=== PATIENT | female | born 1950 | race Caucasian/White ===

== ENCOUNTER 2022-04-21 10:09 | Inpatient (IN) ==
--- NOTE | 2022-04-04 09:08 | PAT Medication Instructions ---
Medication Instructions Date of Service April 04, 2022 Home Medications atorvastatin 10 mg tablet 10 mg PO HS irbesartan 150 mg tablet 150 mg PO QAM multivitamin 1 tab PO QAM multivitamin with minerals (Hair,Skin and Nails tablet) 1 tab PO QAM paroxetine HCl 30 mg tablet 30 mg PO QAM trazodone 100 mg tablet 50 mg PO HS STOP taking 2 weeks before surgery multivitamin with minerals (Hair,Skin and Nails tablet) 1 tab PO QAM DO NOT take the morning of surgery irbesartan 150 mg tablet 150 mg PO QAM multivitamin 1 tab PO QAM Take morning of surgery With a small sip of water, OTHERWISE NOTHING TO EAT OR DRINK AFTER MIDNIGHT: paroxetine HCl 30 mg tablet 30 mg PO QAM Take evening before surgery atorvastatin 10 mg tablet 10 mg PO HS trazodone 100 mg tablet 50 mg PO HS Other Notes If you have any questions please call us at [phone] or [phone] or [phone] or [phone]
--- NOTE | 2022-04-08 09:05 | Anesthesiology Consultation ---
Date of Service April 08, 2022 Assessment & Plan (1) Encounter for pre-operative examination: - pending PCP pre-op evaluation record. PAT testing to be faxed to PCP. Chart Review Chart Review: Pending: Refer to Additional Notes / Consult section and Patient seen in Pre Admission Testing Teaching & Discussion Pre-Anesthesia Teaching/Discussion Notes: Instructed NPO after midnight before surgery, except medications with 15 cc of water. Medication instructions provided according to the PAT guidelines. History Surgery Operation Date: 04/21/22 12:00 Proposed Procedures p L3-S1 Decompression and Fusion Spinal Cord Monitoring - Osorio Herman, Height/Weight Height: 4 ft 11 in Weight: 65 kg Allergies Allergy/AdvReac Type Severity Reaction Status Date / Time No Known Allergies Allergy Verified 04/04/22 07:29 Medications Home Medications Medication Instructions Recorded Confirmed Last Taken atorvastatin 10 mg tablet 10 mg PO HS 04/04/22 04/04/22 Unknown irbesartan 150 mg tablet 150 mg PO QAM 04/04/22 04/04/22 Unknown multivitamin 1 tab PO QAM 04/04/22 04/04/22 Unknown multivitamin with minerals 1 tab PO QAM 04/04/22 04/04/22 Unknown (Hair,Skin and Nails tablet) paroxetine HCl 30 mg tablet 30 mg PO QAM 04/04/22 04/04/22 Unknown trazodone 100 mg tablet 50 mg PO HS 04/04/22 04/04/22 Unknown Past Medical History Medical History (Updated 04/08/22 @ 09:19 by Hyun Sexton PA-C) Anxiety with depression GERD (gastroesophageal reflux disease) controlled, stable per pt; triggered by certain foods History of chronic back pain Hx of sciatica Hypercholesteremia Hypertension controlled, stable per pt; occasional elevated readings recently with systolic 160s due to increased back pain per pt; states PCP is monitoring Patient denies h/o stroke, seizures, heart attack, heart failure, DM, blood clots or blood transfusions. Exercise / Class Metabolic Activity II 4-5 Yardwork/Stairs/Walk up hill (denies CP or SOB with 1 FOS) Past Surgical History Surgical History History of esophagogastroduodenoscopy (EGD) Hx laparoscopic cholecystectomy Hx of arthroscopy of left knee Hx of section x2 Hx of colonoscopy Hx of tubal ligation Past Anesthesia History No Hx of Anesthesia Complications and No Family Hx of Anesthesia Complications History of PONV No Hx of PONV and No Hx of Motion Sickness Social History Smoking Status: Former smoker Do You Dip or Chew Tobacco: No Smoking End Date: 20+ years ago Hx Alcohol Use: Yes Alcohol type: beer alcohol intake frequency: 3 or more drinks per day Hx Substance Use: No substance use type: does not use Review of Systems Patient denies chest pain, shortness of breath, dyspnea on exertion, snoring, witnessed apneas, fever, chills, cough, wheezing, or palpitations. Physical Exam Vital Signs Vitals BP 138/72 manual P 67 TEMP 98.9 SP02 94% on RA RESP 18 Physical Full cervical extension range of motion without pain TMD 3.5 finger breadths Mallampati Score 3 Dentition: intact, lower and upper front teeth bonded together; denies chipped or loose teeth, caps/crowns, implants or bridges Lungs: normal respiratory effort. Clear throughout to auscultation, no adventitious breath sounds Cardiac: regular rate and rhythm, no murmurs noted Carotid arteries: negative bruit bilat Lab Results Anesthesia Preop Results Results Anesthesia Widget: WBC 5.51 K/ul (4.8-10.8) 04/08/22 Hgb 14.5 g/dl (12.0-16.0) 04/08/22 Hct 40.6 % (34.1-44.9) 04/08/22 Plt 242 K/uL (130-400) 04/08/22 Na 137 mmol/L (136-145) 04/08/22 K 4.5 mmol/L (3.5-5.1) 04/08/22 Cl 104 mmol/L (98-107) 04/08/22 CO2 26 mmol/L (21-32) 04/08/22 BUN 19 mg/dl (6-23) 04/08/22 Creat 0.94 mg/dl (0.6-1.2) 04/08/22 Glucose Level 95 mg/dl (70-99(Fasting)) 04/08/22 PT 10.2 Seconds (9.0-12.0) 04/08/22 PTT 29.6 Seconds (21.0-31.0) 04/08/22 INR 1.0 (0.9-1.1) 04/08/22 Urine Color Dark Yellow 04/08/22 Urine Appearance Clear (Clear) 04/08/22 Urine pH 5.5 (4.5-7.5) 04/08/22 Urine Specific [place] 1.022 (1.000-1.030) 04/08/22 Urine Protein Negative (Negative) 04/08/22 Urine Glucose (UA) Negative (Negative) 04/08/22 Urine Ketones Trace (Negative) H 04/08/22 Urine Blood Negative (Negative) 04/08/22 Urine Nitrite Negative (Negative) 04/08/22 Urine Bilirubin Negative (Negative) 04/08/22 Urine Urobilinogen Negative (Negative) 04/08/22 Urine Leukocyte Esterase Trace (Negative) H 04/08/22 Urine WBC (Auto) 1-5 /hpf (0-5) 04/08/22 Urine RBC (Auto) 0-4 /hpf (0-4) 04/08/22 Urine Hyaline Casts (Auto) 0 /lpf (0-5) 04/08/22 Urine Epithelial Cells (Auto) 20-30 /lpf (0-5) H 04/08/22 Urine Bacteria (Auto) Negative (Negative) 04/08/22 Blood Type O Negative 04/08/22 Antibody Screen NEGATIVE 04/08/22 Testing Electrocardiogram Date: 04/08/22 NSR, rate 66 bpm Left axis deviation Poor R wave progression, consider anterior ND vs lead placement vs LVH Chest X-Ray Date: 04/08/22 The heart is normal in size. No pneumothorax. No pleural effusions. The right lung is clear. A few linear density at the left lung base favor scarring or subsegmental atelectasis. No evidence for pulmonary edema. Prior cholecystectomy. IMPRESSION: No acute process. COVID-19 Risk Screen Screening Information COVID-19 Screen Date: 04/08/22 Exposure 21 Days Family/Household +COVID Last 21 Days: No Exposure 10 Days Any COVID Exposure Last 10 Days: No Symptoms Last 10 Days Experienced COVID Sx Last 10 Days: No + COVID 0-90 Days COVID + in Last 0-90 Days: No
[~2022-04-21 10:09] MED LIST: ACETAMINOPHEN 500 MG TAB PO SCH; CeleBREX 200 MG CAP PO SCH; GABAPENTIN 300 MG CAP PO SCH; LR 15ML/HR IV SCH; ceFAZolin 2000MG 2,000 MG/15 ML SYR IV SCH
[2022-04-21] MEDS ORDERED: MIDAZOLAM HCL 1 MG/ML 2ML VIAL ONE (10:39)
[2022-04-21] MEDS ORDERED: fentaNYL citrate 100 MCG/2 ML VIAL ONE (10:39)
--- NOTE | 2022-04-21 11:46 | History & Physical Bridge Note ---
Date of Service April 21, 2022 History & Physical Bridge Note I have examined the patient, reviewed the History & Physical and in the interval since the performance of the History & Physical I have noted the following changes of clinical significance: no changes noted
--- NOTE | 2022-04-21 11:47 | History & Physical Report ---
Date of Service April 21, 2022 Assessment & Plan (1) Neurogenic claudication due to lumbar spinal stenosis: Plan: L3-S1 decompression and fusion History of Present Illness Chief Complaint: Back and leg pain Primary Care Provider: Jony Weston This is a 9-year-old female presents chronic persistent back and bilateral leg pain. After failing course of nonoperative care is here for surgical invention. Allergies Allergy/AdvReac Type Severity Reaction Status Date / Time No Known Allergies Allergy Verified 04/04/22 07:29 Home Medications Medication Instructions Recorded Confirmed Type atorvastatin 10 mg tablet 10 mg PO HS 04/04/22 04/21/22 History irbesartan 150 mg tablet 150 mg PO QAM 04/04/22 04/21/22 History multivitamin 1 tab PO QAM 04/04/22 04/21/22 History multivitamin with minerals 1 tab PO QAM 04/04/22 04/21/22 History (Hair,Skin and Nails tablet) paroxetine HCl 30 mg tablet 30 mg PO QAM 04/04/22 04/21/22 History trazodone 100 mg tablet 50 mg PO HS 04/04/22 04/21/22 History Past Med/Surg History Medical History (Updated 04/21/22 @ 11:47 by Osorio Herman DO) Anxiety with depression GERD (gastroesophageal reflux disease) controlled, stable per pt; triggered by certain foods History of chronic back pain Hx of sciatica Hypercholesteremia Hypertension controlled, stable per pt; occasional elevated readings recently with systolic 160s due to increased back pain per pt; states PCP is monitoring Surgical History History of esophagogastroduodenoscopy (EGD) Hx laparoscopic cholecystectomy Hx of arthroscopy of left knee Hx of section x2 Hx of colonoscopy Hx of tubal ligation Social History Smoking Status: Former smoker Smoking End Date: 20+ years ago; Second Hand Exposure: No; Do You Dip or Chew Tobacco: No; Tobacco Cessation Education Requested by Patient: No Hx Alcohol Use: Yes Alcohol type: beer Hx Substance Use: No Preferred Language: Occitan Communication Ability: Effective Minister Helper Required: No Beliefs That Will Affect Care: None Other Information That Helps Us Care for You: No Feels Safe at Home: Yes Safety Concerns: Feels Safe At This Time Assistive Devices: Glasses Physical Exam Physical Exam: Patient is alert and oriented Heart regular and rhythm lungs clear Results & Data Results & Data ([facility]) Vital Signs (Past 12 Hours) Vital Signs Temp Pulse Resp BP Pulse Ox O2 Del Method 04/21/22 10:50 36.5 C 79 20 169/97 H 93 Room Air
[2022-04-21] MEDS ORDERED: BUPIVACAINE/EPINEPHRINE 0.5% MPF 1:200,000 30 ML VIAL ONE ×2 (11:48→12:20)
[2022-04-21] MEDS ORDERED: ceFAZolin 330 MG/ML 1 GM VIAL ONE (11:48)
[2022-04-21] MEDS ORDERED: MoRPHine SULFATE 10 MG/ML CARP/VIAL IV PRN ×2 (11:53→11:55)
[2022-04-21] MEDS ORDERED: ePHEDrine sulfate 50 MG/ML AMP IV PRN ×2 (11:53→11:55)
[2022-04-21] MEDS ORDERED: ATROPINE SULFATE 0.1 MG/ML 10ML SYR IV PRN ×2 (11:53→11:55)
[2022-04-21] MEDS ORDERED: MEPERIDINE HCL 25 MG/ML CARP/VIAL IV PRN ×2 (11:53→11:55)
[2022-04-21] MEDS ORDERED: fentaNYL citrate 100 MCG/2 ML VIAL IV PRN (11:55)
[2022-04-21] MEDS ORDERED: HYDROmorphone INJ 2 MG/ML SYR/VIAL ONE (12:47)
[2022-04-21] MEDS ORDERED: LARYING-O-JET KIT (LTA) ONE (12:51)
[2022-04-21] MEDS ORDERED: NEOSTIGMINE METHYLSULFATE 1 MG/ML 10ML VIAL ONE (12:51)
[2022-04-21] MEDS ORDERED: ONDANSETRON INJ 2 MG/ML 2 ML VIAL ONE (12:51)
[2022-04-21] MEDS ORDERED: LIDOCAINE 2% MPF LOCAL 5 ML VIAL INFIL ONE (12:51)
[2022-04-21] MEDS ORDERED: ePHEDrine sulfate 50 MG/ML AMP ONE (12:51)
[2022-04-21] MEDS ORDERED: DEXAMETHASONE SOD INJ 4 MG/ML VIAL ONE (12:51)
[2022-04-21] MEDS ORDERED: GLYCOPYRROLATE 0.2 MG/ML VIAL ONE (12:51)
[2022-04-21] MEDS ORDERED: PROPOFOL IV EMULSION 10 MG/ML 20 ML VIAL IV ONE (12:51)
[2022-04-21] MEDS ORDERED: ROCURONIUM BROMIDE 10 MG/ML 5 ML VIAL IV ONE (12:51)
[2022-04-21] MEDS ORDERED: PHENYLEPHRINE HCL 10 MG/ML VIAL ONE (12:51)
[2022-04-21] MEDS ORDERED: FLOSEAL HEMOSTATIC MATRIX 10ML TOP ONE (12:54)
--- NOTE | 2022-04-21 14:41 | Operative Report ---
Post Operative Report Pre & Post Diagnosis Operation Date: 04/21/22 11:55 Pre-Op Diagnosis: Spinal Stenosis Lumbar Region with Neurogenic Post-Op Diagnosis: Spinal Stenosis Lumbar Region with Neurogenic I identified the patient and participated in the time-out.: Yes Procedure Operation Date: 04/21/22 11:55 Actual Procedures #1 lumbar decompression with bilateral medial facetectomies and foraminotomies L2-L3, L3-L4, L4-5 and L5-S1. #2 posterior spinal fusion L3-S1. #3 placement posterior segmental instrumentation L3-S1. #4 interbody fusion L4-L5 L5-S1. #5 placement of Spira 11 x 22 mm at L4-5 and 13 x 22 mm at L5-S1. #6 placement locally harvested morselized autograft in the posterior gutters. #7 placement of I factor model V toss interbody space and posterior gutters. Surgeon Osorio Herman, Gis Scientist Alva Ceballos Estimated Blood Loss 200 Findings Consistent with Post-Op Diagnosis Specimens none Indications This is a 72-year-old female who presents above-mentioned diagnosis after failed course of nonoperative care is here for the above-mentioned procedure. Description of Procedure Patient was met with identified informed consent obtained. Patient was then taken to the operative suite underwent patient placed in a prone position the Jerrod table atop the Braden frame. All bony prominences well-padded eyes inspected to ensure no external pressure placed upon them. This point the lumbar spine was prepped and draped in normal sterile fashion. Sharp dissection with the assistance of Bovie cautery was performed down to and exposing the lamina and transverse processes of L3-L4-L5 and sacral ala bilaterally. From a caudal cephalad fashion complete laminectomy of L5 L4 L3 and partial laminectomy of L2 was performed including bilateral medial facetectomies and foraminotomies addressing severe spinal stenosis. Pedicle screws then placed in L3-L4-L5 and S1 levels and the properly sized jovany contoured and placed. By way of transforaminal approach and ready to be discectomy of L5-S1 was performed endplates curetted to subcortical bleeding bone and a 13 x 22 mm spiral cage with I factor tapped in position. Then proceeded to L4-L5 and again by way the transforaminal approach on the right complete discectomy performed endplates curetted to subcortically bone and a 11 x 22 mm spiral cage with I factor tapped in position. The rods then locked into position bilaterally. Transverse processes of L3 L4-5 and the sacral ala burred to subcortical bleeding bone. I factor combined with V toss and locally harvested morselized autograft was placed in the posterior gutters. 15 round ALAINA drain inserted. The incision was then closed with 1 Vicryl in the fascia 2-0 Vicryl subcutaneously and 4 Monocryl for final skin closure. Steri-Strip sterile dressing placed. Patient waken taken to PACU in stable condition. Please note spinal cord monitoring was last at the procedure no changes noted. Lastly Alva Ceballos was present at the entire surgery involved the patient positioning complex portions of the surgery and final skin closure. I attest to the content of the Intraoperative Record and any orders documented therein. Any exceptions are noted below.
--- NOTE | 2022-04-21 14:44 | Fluoroscopy Report ---
FL lumbar spine 2-3V CLINICAL HISTORY: L3-S1 DECOMP/FUSION COMPARISON STUDY: None. FLUOROSCOPY TIME: 33 seconds. FINDINGS: 2 fluoroscopic spot images of the lumbar spine demonstrate posterior decompression and fusi on from L3 through S1 with pedicle screws and rods. The hardware appears intact. Slight anterior disp lacement of the L4-5 disc spacer which slightly overhangs the endplates. The L5-S1 disc spacers in pl ray. IMPRESSION: Fluoroscopic assistance provided for L3-S1 posterior decompression and fusion as above. ACT 112: Negative or not required by law. Electronically signed by: Nitin Cox M.D. 04/21/2022 2:43 PM
[2022-04-21] MEDS: fentaNYL citrate 100 MCG/2 ML VIAL IV PRN ×4 (15:21→15:36)
--- NOTE | 2022-04-21 15:26 | Anesthesiology Progress Note ---
Date of Service April 21, 2022 Anesthesia Post Procedure Vital Signs Vital Signs: Temp Pulse Resp BP Pulse Ox O2 Del Method O2 Flow Rate 04/21/22 15:10 70 12 122/66 98 Oxymask 6 04/21/22 15:00 72 13 114/64 98 Oxymask 8 04/21/22 14:51 36.1 C L 77 21 117/79 97 Oxymask 8 04/21/22 10:50 36.5 C 79 20 169/97 H 93 Room Air Pain Intensity Lower Back: Pain Intensity: 4 Transfer of Care Handoff Completed per policy Notes Mental Status: alert / awake / arousable Patient Amnestic to Procedure: Yes Nausea / Vomiting: adequately controlled Pain: adequately controlled Airway Patency, RR, SpO2: stable & adequate BP & HR: stable & adequate Hydration State: stable & adequate Anesthetic Complications: no major complications apparent and Pt Satisfied with anesthetic care
[2022-04-21] MEDS ORDERED: ONDANSETRON 4 MG OD TAB PO PRN (17:12)
[2022-04-21] MEDS ORDERED: hydrOXYzine HCl 25 MG TAB PO PRN (17:12)
[2022-04-21] MEDS ORDERED: SOD PHOSPHATE/SOD BIPHOSPHATE ENEMA 132 ML BTL PR PRN (17:12)
[2022-04-21] MEDS ORDERED: ACETAMINOPHEN 1,000 MG/100 ML VIAL IV PRN (17:12)
[2022-04-21] MEDS ORDERED: LACTATED RINGER'S 1,000 ML IV SCH (17:12)
[2022-04-21] MEDS ORDERED: bisacodyL 10 MG SUPP PR PRN (17:12)
[2022-04-21] MEDS ORDERED: PROMETHAZINE HCL 12.5 MG in SODIUM CHLORIDE 0.9% 50 ML IV PRN (17:12)
[2022-04-21] MEDS ORDERED: LORazepam 0.5 MG in SYRINGE 0 ML IV PRN (17:12)
[2022-04-21] MEDS ORDERED: MAGNESIUM HYDROXIDE SUSP 30 ML UDC PO PRN (17:12)
[2022-04-21] MEDS ORDERED: HYDROmorphone INJ 1 MG/ML SYRINGE IV PRN (17:12)
[2022-04-21] MEDS ORDERED: LORazepam 0.5 MG TAB PO PRN (17:12)
[2022-04-21] MEDS ORDERED: HYDROmorphone INJ 0.5 MG/0.5 ML SYR IV PRN (17:12)
[2022-04-21] MEDS ORDERED: traMADol HCL 50 MG TABLET PO PRN (17:12)
[2022-04-21] MEDS ORDERED: ALUMINUM/MAGNESIUM SUSP 30 ML UDC PO PRN (17:12)
[2022-04-21] MEDS ORDERED: NALOXONE HCL 0.4 MG/1 ML VIAL/CARP IV PRN (17:12)
[2022-04-21] MEDS ORDERED: ONDANSETRON INJ 2 MG/ML 2 ML VIAL IV PRN (17:12)
[2022-04-21] MEDS ORDERED: FAMOTIDINE 20 MG TAB PO PRN (17:12)
[2022-04-21] MEDS ORDERED: METOCLOPRAMIDE HCL INJ 5 MG/ML 2 ML VIAL IV PRN (17:12)
[2022-04-21] MEDS ORDERED: diphenhydrAMINE Capsule 25 MG CAP PO PRN (17:12)
[2022-04-21] MEDS ORDERED: LORazepam 1 MG TAB PO PRN ×3 (17:48)
[2022-04-21] MEDS ORDERED: Ativan PO Alcohol Withdrawal--Active Protocol PO PRN (17:48)
--- NOTE | 2022-04-21 17:54 | Hospitalist Consultation ---
Date of Consultation April 21, 2022 Assessment & Plan (1) Neurogenic claudication due to lumbar spinal stenosis: POD#0 L3-S1 decompression and fusion by Dr. Herman Activity and wound care orders as per ortho Pain control with bowel regimen PT/OT Monitor H/H for acute blood loss anemia and transfuse blood products PRN EBL 200 cc (2) Alcohol abuse: Patient reports drinking up to 6 beers/night Alcohol withdrawal protocol with as needed Ativan Start thiamine and folic acid (3) Hypertension: BP controlled, continue irbesartan (4) Anxiety with depression: Continue paroxetine and trazodone (5) DVT prophylaxis: TEDs/SCDs as per spine Ortho Thank you for this consultation. We will follow the patient with you during their hospital stay. You can reach a member of the [facility] Hospitalist Team 22/12 via the [employer] Hospitalist role in [place] Text. Supervising Physician Co-Signing Physician Notes Care coordinated with GORDON Barlow. Agree with above note. Patient seen and examined. Please refer to her notes for full details. Vital signs reviewed. Physical exam: General exam: Alert and oriented. Not in acute distress. CVS: S1 and S2 heard, regular rate and rhythm, no murmurs. RS: Clear to auscultation, no wheezing or crackles. ABD: Soft, bowel sounds present, nontender, no distention. AGRICULTURAL SCIENCE PROFESSOR: Nonfocal. Musculoskeletal s/p back surgery dressing and drain intact EXT: No edema, no erythema. Labs: Reviewed. Assessment and plan: 72F with hx of HTN ongoing alcoholism is s/p back surgery. olerated procedure ok . resting comfortably. denies any pain. No chest pain or sob or blurry vision or nausea. BAck surgery as per ortho Alcoholism 6 beers/day denies any withdrawals started on gabapentin and ativan prn protocol thiamine and folic acid will monitor Other diagnosis and plan of care as per GORDON Barlow. . Mitch salinas MD. History of Present Illness Reason for Consultation: Postop medical management Requesting Physician: Dr. Herman Attending Physician: Osorio Herman DO History of Present Illness 72-year-old female with PMH HTN, HLD, anxiety, alcohol abuse, and other problems listed below who is s/p L3-S1 decompression and fusion today by Dr. Herman. Postoperatively, the patient is doing well. She is reporting incisional back pain and is requesting pain medication. Patient appears to be resting comfortably in bed. Denies radiation of the pain into either leg and also denies numbness, tingling, weakness to lower extremities. No chest pain or shortness of breath. Denies lightheadedness and dizziness. No abdominal pain or nausea. Allergies Allergy/AdvReac Type Severity Reaction Status Date / Time No Known Allergies Allergy Verified 04/04/22 07:29 Home Medications Medication Instructions Recorded Confirmed Type atorvastatin 10 mg tablet 10 mg PO HS 04/04/22 04/21/22 History irbesartan 150 mg tablet 150 mg PO QAM 04/04/22 04/21/22 History multivitamin 1 tab PO QAM 04/04/22 04/21/22 History multivitamin with minerals 1 tab PO QAM 04/04/22 04/21/22 History (Hair,Skin and Nails tablet) paroxetine HCl 30 mg tablet 30 mg PO QAM 04/04/22 04/21/22 History trazodone 100 mg tablet 50 mg PO HS 04/04/22 04/21/22 History Patient History Medical History Alcohol abuse Anxiety with depression GERD (gastroesophageal reflux disease) controlled, stable per pt; triggered by certain foods History of chronic back pain Hx of sciatica Hypercholesteremia Hypertension controlled, stable per pt; occasional elevated readings recently with systolic 160s due to increased back pain per pt; states PCP is monitoring Surgical History History of esophagogastroduodenoscopy (EGD) Hx laparoscopic cholecystectomy Hx of arthroscopy of left knee Hx of section x2 Hx of colonoscopy Hx of tubal ligation Family History Father COPD (chronic obstructive pulmonary disease) Mother COPD (chronic obstructive pulmonary disease) Social History Smoking Status: Former smoker Smoking End Date: 20+ years ago; Second Hand Exposure: No; Do You Dip or Chew Tobacco: No; Tobacco Cessation Education Requested by Patient: No Hx Alcohol Use: Yes Alcohol type: beer Hx Substance Use: No Preferred Language: Guatemalan Communication Ability: Effective Plan Nurse Required: No Beliefs That Will Affect Care: None Other Information That Helps Us Care for You: No Feels Safe at Home: Yes Safety Concerns: Feels Safe At This Time Assistive Devices: Glasses Review of Systems Review of Systems: ROS per HPI, all other systems reviewed and negative Physical Exam Constitutional: WD/WN, vitals as above Eyes: PERRL, conjunctivae normal, anicteric sclerae ENMT: external ear and nose normal, oropharynx normal Respiratory: normal respiratory effort, lungs clear to auscultation Cardiovascular: Rate/Rhythm: regular rate and regular rhythm Vessels: normal peripheral pulses Extremities: no edema Gastrointestinal (Abdomen): normal bowel sounds, soft, nontender, no hepatosplenomegaly Musculoskeletal: S/p back surgery, pedal pushes and pulls strong bilaterally, drain in place draining bloody drainage Skin: no rashes, warm and dry Neurologic: PERRL, EOMI, accommodation nl, no face palsy, no dysarthria Psychiatric: A+Ox3, euthymic affect Results & Data Results & Data ([facility]) Vital Signs (Past 12 Hours) Vital Signs Temp Pulse Resp BP Pulse Ox O2 Del Method O2 Flow Rate 04/21/22 17:10 36.6 C 74 16 123/76 95 Nasal Cannula 3 04/21/22 16:55 77 13 123/62 98 Nasal Cannula 3 04/21/22 16:25 74 21 122/63 95 Nasal Cannula 3 04/21/22 16:10 78 20 108/62 98 Nasal Cannula 3 04/21/22 16:00 63 16 105/59 L 90 Nasal Cannula 3 04/21/22 15:50 63 17 120/56 L 94 Nasal Cannula 2 04/21/22 15:40 36.4 C L 74 18 103/57 L 96 Nasal Cannula 2 04/21/22 15:30 74 18 130/65 95 Nasal Cannula 2 04/21/22 15:20 79 17 121/64 94 Oxymask 4 04/21/22 15:10 70 12 122/66 98 Oxymask 6 04/21/22 15:00 72 13 114/64 98 Oxymask 8 04/21/22 14:51 36.1 C L 77 21 117/79 97 Oxymask 8 04/21/22 10:50 36.5 C 79 20 169/97 H 93 Room Air
[2022-04-21] MEDS: ACETAMINOPHEN 500 MG TAB PO PRN (18:12)
[2022-04-21] MEDS ORDERED: GABAPENTIN 1200MG ALCOHOL WITHDRAWAL LOAD PO STA (19:08)
[2022-04-21] MEDS ORDERED: GABAPENTIN 600 MG TAB PO ONE (19:30)
[2022-04-21] MEDS: FOLIC ACID 1 MG TAB PO SCH (20:21)
[2022-04-21] MEDS: ceFAZolin 1000MG 1,000 MG/7.5 ML SYR IV SCH (20:21)
[2022-04-21] MEDS: THIAMINE HCL 100 MG TAB PO SCH (20:22)
[2022-04-21] MEDS: ATORVASTATIN 10 MG TAB PO SCH (20:23)
[2022-04-21] MEDS: DOCUSATE SODIUM/SENNA 50/8.6MG TAB PO SCH (20:23)
[2022-04-21] MEDS: traZODone HCL 50 MG TAB PO SCH (20:24)
[2022-04-21] MEDS: oxyCODONE HCL IR 5 MG TAB (IMMEDIATE RELEASE) PO PRN (20:27)
[2022-04-21] MEDS ORDERED: PNEUMOCOCCAL Polysaccharide Vaccine 25mcg/0.5mL vial/Syr IM ONE (21:00)
[2022-04-21] MEDS ORDERED: NURSING DECISION MEDICATION ONE (23:05)
[2022-04-21] MEDS ORDERED: COUGH DROP (SUGAR FREE) LOZ 24 LOZ/1 BOX BUCCAL PRN (23:06)
[2022-04-22] MEDS: ceFAZolin 1000MG 1,000 MG/7.5 ML SYR IV SCH (04:21)
[2022-04-22] MEDS: POLYETHYLENE (MIRALAX) 17 GM PACK PO SCH ×4 (05:34→23:39)
[2022-04-22] MEDS: GABAPENTIN 600 MG TAB PO SCH ×3 (05:35→20:33)
[2022-04-22 06:36] LABS: Hematocrit (blood only) 31.8 % (34.1-44.9); Hemoglobin 11.3 g/dl (12.0-16.0); Mean Corpuscular Hemoglobin 34.5 pg (25.0-34.0); Mean Corpuscular Hgb Conc 35.5 g/dL (32.0-36.0); Mean Platelet Volume 10.1 fL (9.4-12.3); Platelet Count 228 K/uL (130-400); RDW Coefficient of Variation 12.5 % (11.5-14.5); RDW Standard Deviation 44.2 fL (36.4-46.3); Red Blood Count 3.28 M/uL (3.93-5.22); White Blood Count 13.35 K/ul (4.8-10.8)
[2022-04-22 07:00] LABS: Calcium 8.8 mg/dl (8.5-10.1); Creatinine Clr Calc Pharmacy 42.4 ml/min; Est GFR (African American) 66.1 ml/min; Potassium 4.4 mmol/L (3.5-5.1)
[2022-04-22 07:18] LABS: Basophils # (auto) 0.01 K/uL (0-0.2); Basophils % (auto) 0.1 %; Immature Granulocytes # (auto) 0.09 K/uL (0.00-0.02); Immature Granulocytes % (auto) 0.7 %; Lymphocytes # (auto) 0.66 K/uL (1.2-3.4); Lymphocytes % (auto) 4.9 %; Monocytes # (auto) 0.31 K/uL (0.24-0.82); Monocytes % (auto) 2.3 %; Neutrophils # (auto) 12.28 K/uL (1.4-6.5); Polychromasia 1+
[2022-04-22] MEDS: ACETAMINOPHEN 500 MG TAB PO PRN (08:05)
[2022-04-22] MEDS: IRBESARTAN 150 MG TAB PO SCH (08:06)
[2022-04-22] MEDS: THIAMINE HCL 100 MG TAB PO SCH (08:06)
[2022-04-22] MEDS: MULTIVITAMIN TAB PO SCH (08:06)
[2022-04-22] MEDS: dexAMETHasone 6 MG in SYRINGE 0 ML IV SCH (08:07)
[2022-04-22] MEDS: FOLIC ACID 1 MG TAB PO SCH (08:07)
[2022-04-22] MEDS: PARoxetine HCL 10 MG TAB PO SCH (08:07)
--- NOTE | 2022-04-22 09:26 | Orthopedic Progress Note ---
Date of Service April 22, 2022 Assessment & Plan (1) Neurogenic claudication due to lumbar spinal stenosis: Plan: Patient is postop day 1 status post L3-S1 decompression instrumented fusion. Will continue with pain control. Start physical therapy today. Maintain ALAINA drain. DVT prophylaxis is in the form teds and SCDs. Continue with aggressive bowel regimen. Anticipate discharge home in roughly 48 hours. Admission and Anticipated Discharge Date Admission Date: April 21, 2022 Subjective Clara is postop day 1 status post L3-S1 decompression and instrumented fusion. She has complaints of some right lower extremity numbness and paresthesias. This was her affected leg preoperatively. Preoperative pain is improved. ALAINA drain output last shift was 90 cc. H&H is morning are 11.3 and 31.8 respectively Review of Systems Review of Systems: All systems reviewed & are unremarkable except as noted in HPI & below Physical Exam Physical Exam: She sitting up in a chair no acute distress Alert and oriented x3 Lumbar dressing is clean dry intact with functioning ALAINA drain Calf soft nontender bilaterally Strength intact bilateral lower extremities Results & Data ([facility]) Vital Signs (Past 12 Hours) Vital Signs Temp Pulse Resp BP Pulse Ox O2 Del Method O2 Flow Rate 04/22/22 06:30 36.4 C L 82 18 128/85 99 Room Air 04/22/22 02:34 36.5 C 81 16 112/69 93 Room Air 04/21/22 22:57 36.4 C L 87 16 126/79 95 Nasal Cannula 2
--- NOTE | 2022-04-22 14:59 | Student Report ---
[facility] Med Student Progress Note Date of Service Date of service: April 22, 2022 Subjective Subjective: 72 yo female with PMHx of HTN, HLD, anxiety, ETOH abuse, and neurogenic claudication of the lumbar spine who is POD 1 from L3-S1 decompression and fusion. Pt states that she feels "pretty good" and besides some incisional pain, isn't having any discomfort. She noted some previous numbness to her right foot, but says that it's improving. Pt denies any fever, chills, night sweats, CP, SOB, N/V/D, or issues with jarvis catheter. Pt said she worked with OT today to learn how to get in and out of bed and ambulate. Pt expressed some concern that she might be too much for her , who suffers from COPD, to provide care for her. She wants to go home, but wants to be sure that she is well enough to care for her own basic needs. ROS ROS: See above for pertinent positives & negatives. A total of 10 systems reviewed and were otherwise negative. Physical Exam Physical Exam: Vital Signs Temp 36.7 C 04/22/22 11:44 Pulse 74 04/22/22 11:44 Resp 16 04/22/22 11:44 BP 115/72 04/22/22 11:44 Pulse Ox 94 04/22/22 11:44 O2 Del Method 04/22/22 11:44 O2 Flow Rate 2 04/21/22 22:57 General: Well-appearing, in no significant distress. Converses appropriately, cooperative. HEENT: No scleral icterus, PERRLA, neck supple. Atraumatic. Normocephalic. Cardiovascular: S1, S2 regular rate. No murmurs, gallops, S3, S4. Radial and pedal pulses +2 palp bilaterally. Pulmonary: Clear to auscultation bilaterally, normal work of breathing. Abdomen: Soft, nontender, nondistended, positive bowel sounds. Musculoskeletal: Atraumatic, no peripheral edema. Neurologic: Patient awake alert and oriented x 3, +4 strength in all 4 extremities. PERRLA, wears glasses. Skin: Warm, dry, no rash. Back incision covered with dry/intact dressing. Sanguinous drainage noted in ALAINA bulb. Results Results: Short CBC 04/22/22 06:14 WBC 13.35 H Hgb 11.3 L Hct 31.8 L Plt Count 228 BMP 04/22/22 06:14 Sodium 133 L Potassium 4.4 Chloride 99 Carbon Dioxide 26 BUN 13 Creatinine 1.00 Glucose 197 H Calcium 8.8 A&P A&P: 1. Neurogenic claudication of lumbar spine: POD 1 L3-S1 decompression and fusion. H&H preop: 14.5/40.6 and post-op: 11.3/31.8. Pt asymptomatic at this time. Activity as pt tolerates, per ortho-spine. Order to remove jarvis in place, not d/c'd at time of patient visit. Worked with PT/OT this morning. 2. ETOH abuse: Spoke with patient regarding withdraw risk. Pt verbalized understanding of medications available for symptoms if needed. In addition to multivitamin, pt ordered folic acid and thiamin. 3. HTN/HLD: Pt appears to be well controlled on current med regimen. Continue irbesartan and atorvastatin inpatient. 4. Anxiety/Depression: Continue paroxetine and trazadone. 5. DVT prophylaxis: SCOTT stockings and SCDs to BLE. Updated Medication List Medication Instructions Recorded Confirmed Type atorvastatin 10 mg tablet 10 mg PO HS 04/04/22 04/21/22 History irbesartan 150 mg tablet 150 mg PO QAM 04/04/22 04/21/22 History multivitamin 1 tab PO QAM 04/04/22 04/21/22 History multivitamin with minerals 1 tab PO QAM 04/04/22 04/21/22 History (Hair,Skin and Nails tablet) paroxetine HCl 30 mg tablet 30 mg PO QAM 04/04/22 04/21/22 History trazodone 100 mg tablet 50 mg PO HS 04/04/22 04/21/22 History oxycodone 5 mg tablet 5 mg PO Q6H PRN pain, severe #30 04/22/22 Rx tabs tramadol 50 mg tablet 50 mg PO Q6H PRN pain, moderate 04/22/22 Rx #30 tabs
--- NOTE | 2022-04-22 15:27 | Hospitalist Progress Note ---
Date of Service April 22, 2022 Assessment & Plan (1) Neurogenic claudication due to lumbar spinal stenosis: Plan: POD#1 L3-S1 decompression and fusion by Dr. Herman Activity and wound care orders as per ortho Pain control with bowel regimen PT/OT Monitor H/H for acute blood loss anemia and transfuse blood products PRN EBL 200 cc, ALAINA output 380 cc Preop Hgb 14.5 --> 11.3 (2) Alcohol abuse: Plan: Patient reports drinking up to 6 beers/night Alcohol withdrawal protocol with gabapentin protocol and as needed Ativan. Patient has not required any doses of Ativan. Start thiamine and folic acid (3) Hypertension: Plan: BP controlled, continue irbesartan (4) Anxiety with depression: Plan: Continue paroxetine and trazodone (5) DVT prophylaxis: Plan: TEDs/SCDs as per spine Ortho Admission and Anticipated Discharge Date Admission Date: April 21, 2022 Supervising Physician Co-Signing Physician Notes Patient seen and examined at bedside as a follow-up of medical consult for lumbar surgery. Patient was sitting up in bed, on room air, NAD, reports RLE radicular symptoms improvement, reports minimal pain at operative site. Patient reports feeling better. Patient tolerating diet well. Has not moved bowels yet but is moving gas. On examination patient on room air, NAD, heart/lung/abdomen examination WNL, low back with clean dressing with a sulcus, ALAINA drain noted with moderate serosanguineous collection noted. Rest of the examination as above. I have seen and examined the patient and have discussed the case with the provider above. I agree with the assessment and plan as stated. Seen By dr. Delarosa and Niesha Subjective Follow-up for medical management, s/p L3-S1 decompression and fusion by Dr. Herman. Patient seen and examined. Offers no complaints, reports pain is well controlled. Reports brief episode of right foot to mid calf numbness that has since resolved. No chest pain or shortness of breath. Denies lightheadedness and dizziness while out of bed. Balderas remains in place. No abdominal pain or nausea, +flatus, no BM. Review of Systems Review of Systems: ROS per HPI, all other systems reviewed and negative Physical Exam Constitutional: WD/WN, vitals as above no acute distress Resting in bed Respiratory: normal respiratory effort, lungs clear to auscultation Cardiovascular: Rate/Rhythm: regular rate and regular rhythm Vessels: normal peripheral pulses Extremities: no edema Gastrointestinal (Abdomen): Percussion/Palpation: abdomen soft; abdomen nontender Musculoskeletal: S/p back surgery, pedal pushes and pulls strong bilaterally, drain in place draining serosanguineous drainage Skin: no rashes, warm and dry Neurologic: no focal motor deficits Psychiatric: A+Ox3, euthymic affect Results & Data Results & Data ([facility]) Vital Signs (Past 12 Hours) Vital Signs Temp Pulse Resp BP Pulse Ox O2 Del Method 04/22/22 11:44 36.7 C 74 16 115/72 94 Room Air 04/22/22 06:30 36.4 C L 82 18 128/85 99 Room Air Laboratory Results Short CBC 04/22/22 Range/Units 06:14 WBC 13.35 H (4.8-10.8) K/ul Hgb 11.3 L (12.0-16.0) g/dl Hct 31.8 L (34.1-44.9) % Plt Count 228 (130-400) K/uL BMP 04/22/22 06:14 Sodium 133 L Potassium 4.4 Chloride 99 Carbon Dioxide 26 BUN 13 Creatinine 1.00 Glucose 197 H Calcium 8.8
[2022-04-22] MEDS: DOCUSATE SODIUM/SENNA 50/8.6MG TAB PO SCH (20:33)
[2022-04-22] MEDS: ATORVASTATIN 10 MG TAB PO SCH (20:34)
[2022-04-22] MEDS: traZODone HCL 50 MG TAB PO SCH (20:34)
[2022-04-22] MEDS: oxyCODONE HCL IR 5 MG TAB (IMMEDIATE RELEASE) PO PRN (22:19)
[2022-04-23] MEDS: POLYETHYLENE (MIRALAX) 17 GM PACK PO SCH ×3 (05:14→18:36)
[2022-04-23] MEDS: GABAPENTIN 600 MG TAB PO SCH ×2 (05:14→15:24)
[2022-04-23] MEDS: oxyCODONE HCL IR 5 MG TAB (IMMEDIATE RELEASE) PO PRN ×3 (05:16→21:32)
[2022-04-23] MEDS: MULTIVITAMIN TAB PO SCH (07:40)
[2022-04-23] MEDS: FOLIC ACID 1 MG TAB PO SCH (07:40)
[2022-04-23] MEDS: dexAMETHasone 6 MG in SYRINGE 0 ML IV SCH (07:40)
[2022-04-23] MEDS: IRBESARTAN 150 MG TAB PO SCH (07:40)
[2022-04-23] MEDS: THIAMINE HCL 100 MG TAB PO SCH (07:40)
[2022-04-23] MEDS: PARoxetine HCL 10 MG TAB PO SCH (07:40)
--- NOTE | 2022-04-23 09:30 | Hospitalist Progress Note ---
Date of Service April 23, 2022 Assessment & Plan (1) Neurogenic claudication due to lumbar spinal stenosis: Plan: POD#2 L3-S1 decompression and fusion by Dr. Herman Activity and wound care orders as per ortho Pain control with bowel regimen PT/OT EBL 200 cc, ALAINA output 595 cc Acute blood loss anemia Preop Hgb 14.5 --> 11.3 -->9.5 Continue to monitor CBC, transfuse blood products PRN (2) Alcohol abuse: Plan: Patient reports drinking up to 6 beers/night Alcohol withdrawal protocol with gabapentin protocol and as needed Ativan. Patient has not required any doses of Ativan. Start thiamine and folic acid No signs of withdrawal (3) Hypertension: Plan: BP controlled, continue irbesartan (4) Anxiety with depression: Plan: Continue paroxetine and trazodone (5) DVT prophylaxis: Plan: TEDs/SCDs as per spine Ortho Admission and Anticipated Discharge Date Admission Date: April 21, 2022 Supervising Physician Co-Signing Physician Notes Patient seen and examined independently. Agree with above documentation by Niesha LEYVA. She is lying down on the bed comfortably; not in any distress. She denies fever, chills, chest pain, shortness of breath, abdominal discomfort or urinary symptoms. She is passing gas but has not had a bowel movement. No episode of fever overnight. No complaint of calf pain. Balderas has been removed and she is voiding well. Subjective Follow-up for medical management, s/p L3-S1 decompression and fusion by Dr. Herman. Patient seen and examined. Reports pain is well controlled. Reports right foot to mid calf numbness. No weakness. Ambulated in [place] with PT yesterday. No chest pain or shortness of breath. Denies lightheadedness and dizziness while out of bed. Urinating without difficulty. No abdominal pain or nausea, +flatus, no BM. Review of Systems Review of Systems: ROS per HPI, all other systems reviewed and negative Physical Exam Constitutional: WD/WN, vitals as above no acute distress ressting in bed Respiratory: normal respiratory effort, lungs clear to auscultation Cardiovascular: Rate/Rhythm: regular rate and regular rhythm Vessels: normal peripheral pulses Extremities: no edema Gastrointestinal (Abdomen): Percussion/Palpation: abdomen soft; abdomen nontender Musculoskeletal: s/p back surgery, pedal pushes and pulls strong BL Skin: no rashes, warm and dry Neurologic: no focal motor deficits Psychiatric: A+Ox3, euthymic affect Results & Data Results & Data ([facility] [place]) Vital Signs (Past 12 Hours) Vital Signs Temp Pulse Resp BP Pulse Ox O2 Del Method 04/23/22 07:38 36.5 C 70 16 121/74 95 Room Air 04/22/22 22:06 36.5 C 79 16 150/81 H 96 Room Air Laboratory Results Short CBC 04/23/22 Range/Units 10:12 WBC 13.99 H (4.8-10.8) K/ul Hgb 9.5 L (12.0-16.0) g/dl Hct 27.6 L (34.1-44.9) % Plt Count 190 (130-400) K/uL BMP 04/23/22 10:12 Sodium 137 Potassium 4.2 Chloride 101 Carbon Dioxide 29 BUN 17 Creatinine 1.31 H D Glucose 168 H Calcium 8.8
--- NOTE | 2022-04-23 09:48 | Orthopedic Progress Note ---
Date of Service April 23, 2022 Assessment & Plan (1) Neurogenic claudication due to lumbar spinal stenosis: Plan: At this time we will continue physical therapy monitor ALAINA output hopefully determine next few days. Admission and Anticipated Discharge Date Admission Date: April 21, 2022 Subjective Back pain controlled leg pain markedly improved Physical Exam Physical Exam: Patient is good strength testing appears comfortable. Results & Data ([facility]) Vital Signs (Past 12 Hours) Vital Signs Temp Pulse Resp BP Pulse Ox O2 Del Method 04/23/22 07:38 36.5 C 70 16 121/74 95 Room Air 04/22/22 22:06 36.5 C 79 16 150/81 H 96 Room Air
[2022-04-23 10:34] LABS: Hematocrit (blood only) 27.6 % (34.1-44.9); Hemoglobin 9.5 g/dl (12.0-16.0); Mean Corpuscular Hemoglobin 34.1 pg (25.0-34.0); Mean Corpuscular Hgb Conc 34.4 g/dL (32.0-36.0); Mean Corpuscular Volume 98.9 fL (80.0-100.0); Mean Platelet Volume 10.4 fL (9.4-12.3); Platelet Count 190 K/uL (130-400); RDW Coefficient of Variation 13.1 % (11.5-14.5); RDW Standard Deviation 46.8 fL (36.4-46.3); Red Blood Count 2.79 M/uL (3.93-5.22); White Blood Count 13.99 K/ul (4.8-10.8)
[2022-04-23 10:57] LABS: Calcium 8.8 mg/dl (8.5-10.1); Creatinine Clr Calc Pharmacy 32.4 ml/min; Est GFR (African American) 47.7 ml/min; Est GFR (Non-African American) 41.1 ml/min; Potassium 4.2 mmol/L (3.5-5.1)
[2022-04-23] MEDS: traZODone HCL 50 MG TAB PO SCH (21:35)
[2022-04-23] MEDS: DOCUSATE SODIUM/SENNA 50/8.6MG TAB PO SCH (21:35)
[2022-04-23] MEDS: ATORVASTATIN 10 MG TAB PO SCH (21:36)
[2022-04-24] MEDS: POLYETHYLENE (MIRALAX) 17 GM PACK PO SCH ×2 (00:59→06:23)
[2022-04-24] MEDS: GABAPENTIN 600 MG TAB PO SCH ×2 (00:59→12:00)
[2022-04-24] MEDS: dexAMETHasone 6 MG in SYRINGE 0 ML IV SCH (07:55)
[2022-04-24] MEDS: oxyCODONE HCL IR 5 MG TAB (IMMEDIATE RELEASE) PO PRN ×3 (08:00→21:59)
[2022-04-24] MEDS: THIAMINE HCL 100 MG TAB PO SCH (08:01)
[2022-04-24] MEDS: MULTIVITAMIN TAB PO SCH (08:01)
[2022-04-24] MEDS: PARoxetine HCL 10 MG TAB PO SCH (08:01)
[2022-04-24] MEDS: FOLIC ACID 1 MG TAB PO SCH (08:01)
--- NOTE | 2022-04-24 09:31 | Orthopedic Progress Note ---
Date of Service April 24, 2022 Assessment & Plan (1) Neurogenic claudication due to lumbar spinal stenosis: Plan: Today we will continue physical therapy anticipate discharge home tomorrow. Admission and Anticipated Discharge Date Admission Date: April 21, 2022 Subjective Back pain controlled leg symptoms steadily improving Physical Exam Physical Exam: Patient is currently in bed. Is comfortable. Is good strength testing. Results & Data ([facility]) Vital Signs (Past 12 Hours) Vital Signs Temp Pulse Resp BP Pulse Ox O2 Del Method 04/24/22 07:36 36.8 C 67 16 155/76 H 94 Room Air 04/23/22 21:35 Room Air 04/23/22 22:30 36.5 C 79 17 150/78 H 93 Room Air
--- NOTE | 2022-04-24 14:13 | Hospitalist Progress Note ---
Date of Service April 24, 2022 Assessment & Plan (1) Neurogenic claudication due to lumbar spinal stenosis: Plan: POD#2 L3-S1 decompression and fusion by Dr. Herman Activity and wound care orders as per ortho Pain control with bowel regimen PT/OT EBL 200 cc, ALAINA output 380 cc Preop Hgb 14.5 --> 11.3 > 9.5. Hemoglobin downtrending to 9.5. No sign of active bleeding Needs to follow-up with primary care doctor to obtain CBC. Elevated Creatinine. -Creatinine 1.31; slightly uptrending. - Patient voiding well. - will obtain BMP to follow Cr - Hold Irbesartan. (2) Alcohol abuse: Plan: Patient reports drinking up to 6 beers/night No sign and symptoms of withdrawal. (3) Hypertension: Plan: Irbesartan on hold given elevated creatinine. (4) Anxiety with depression: Plan: Continue paroxetine and trazodone (5) DVT prophylaxis: Plan: TEDs/SCDs as per spine Ortho Admission and Anticipated Discharge Date Admission Date: April 21, 2022 Subjective Patient seen and examined at bedside. She is comfortably lying in the bed; not in distress. She denies any fever, chills, chest pain, cough or shortness of breath. She is voiding well and had a bowel movement. Review of Systems Review of Systems: All systems reviewed & are unremarkable except as noted in Subjective Physical Exam Constitutional: WD/WN, vitals as above no acute distress Eyes: PERRL, conjunctivae normal, anicteric sclerae ENMT: external ear and nose normal, oropharynx normal Respiratory: normal respiratory effort, lungs clear to auscultation Cardiovascular: Rate/Rhythm: regular rate and regular rhythm Vessels: normal peripheral pulses Extremities: no edema Gastrointestinal (Abdomen): normal bowel sounds, soft, nontender, no hepatosplenomegaly Percussion/Palpation: abdomen soft; abdomen nontender Skin: no rashes, warm and dry Neurologic: PERRL, EOMI, accommodation nl, no face palsy, no dysarthria no focal motor deficits Psychiatric: A+Ox3, euthymic affect Results & Data Results & Data ([facility]) Vital Signs (Past 12 Hours) Vital Signs Temp Pulse Resp BP Pulse Ox O2 Del Method 04/24/22 07:36 36.8 C 67 16 155/76 H 94 Room Air Laboratory Results Laboratory Results WBC 13.99 K/ul (4.8-10.8) H 04/23/22 10:12 RBC 2.79 M/uL (3.93-5.22) L 04/23/22 10:12 Hgb 9.5 g/dl (12.0-16.0) L 04/23/22 10:12 Hct 27.6 % (34.1-44.9) L 04/23/22 10:12 MCV 98.9 fL (80.0-100.0) 04/23/22 10:12 MCH 34.1 pg (25.0-34.0) H 04/23/22 10:12 MCHC 34.4 g/dL (32.0-36.0) 04/23/22 10:12 RDW Std Deviation 46.8 fL (36.4-46.3) H 04/23/22 10:12 RDW Coeff of Chris 13.1 % (11.5-14.5) 04/23/22 10:12 Plt Count 190 K/uL (130-400) 04/23/22 10:12 MPV 10.4 fL (9.4-12.3) 04/23/22 10:12 Immature Gran % (Auto) 0.7 % 04/22/22 06:14 Neut % (Auto) 92.0 % 04/22/22 06:14 Lymph % (Auto) 4.9 % 04/22/22 06:14 [place] % (Auto) 2.3 % 04/22/22 06:14 Eos % (Auto) 0.0 % 04/22/22 06:14 Baso % (Auto) 0.1 % 04/22/22 06:14 Neut # (Auto) 12.28 K/uL (1.4-6.5) H 04/22/22 06:14 Lymph # (Auto) 0.66 K/uL (1.2-3.4) L 04/22/22 06:14 [place] # (Auto) 0.31 K/uL (0.24-0.82) 04/22/22 06:14 Eos # (Auto) 0.00 K/uL (0-0.50) 04/22/22 06:14 Baso # (Auto) 0.01 K/uL (0-0.2) 04/22/22 06:14 Immature Gran # (Auto) 0.09 K/uL (0.00-0.02) H 04/22/22 06:14 Polychromasia 1+ 04/22/22 06:14 Sodium 137 mmol/L (136-145) 04/23/22 10:12 Potassium 4.2 mmol/L (3.5-5.1) 04/23/22 10:12 Chloride 101 mmol/L (98-107) 04/23/22 10:12 Carbon Dioxide 29 mmol/L (21-32) 04/23/22 10:12 Anion Gap 7 (3-11) 04/23/22 10:12 BUN 17 mg/dl (6-23) 04/23/22 10:12 Creatinine 1.31 mg/dl (0.6-1.2) H D 04/23/22 10:12 Est Cr Clr Drug Dosing 32.4 ml/min 04/23/22 10:12 Est GFR ( Amer) 47.7 ml/min 04/23/22 10:12 Est GFR (Non-Af Amer) 41.1 ml/min 04/23/22 10:12 BUN/Creatinine Ratio 13.0 (10-20) 04/23/22 10:12 Glucose 168 mg/dl (70-99(Fasting)) H 04/23/22 10:12 Calcium 8.8 mg/dl (8.5-10.1) 04/23/22 10:12 SARS-CoV-2, RNA, NAAT NEGATIVE (NEGATIVE) 04/21/22 Unknown Blood Type O Negative 04/21/22 10:40 Antibody Screen NEGATIVE 04/21/22 10:40 Crossmatch See Detail 04/21/22 10:40 Impressions Lumbar Spine X-Ray 04/21/22 00:00 FL lumbar spine 2-3V CLINICAL HISTORY: L3-S1 DECOMP/FUSION COMPARISON STUDY: None. FLUOROSCOPY TIME: 33 seconds. FINDINGS: 2 fluoroscopic spot images of the lumbar spine demonstrate posterior decompression and fusion from L3 through S1 with pedicle screws and rods. The hardware appears intact. Slight anterior displacement of the L4-5 disc spacer which slightly overhangs the endplates. The L5-S1 disc spacers in place. IMPRESSION: Fluoroscopic assistance provided for L3-S1 posterior decompression and fusion as above. ACT 112: Negative or not required by law. Electronically signed by: Nitin Cox M.D. 04/21/2022 2:43 PM
[2022-04-24] MEDS: ATORVASTATIN 10 MG TAB PO SCH (21:56)
[2022-04-24] MEDS: DOCUSATE SODIUM/SENNA 50/8.6MG TAB PO SCH (21:56)
[2022-04-24] MEDS: traZODone HCL 50 MG TAB PO SCH (21:56)
[2022-04-25 07:25] LABS: BUN Creatinine Ratio 19.6 (10-20); Calcium 8.9 mg/dl (8.5-10.1); Creatinine Clr Calc Pharmacy 43.8 ml/min; Est GFR (African American) 68.6 ml/min; Est GFR (Non-African American) 59.2 ml/min
[2022-04-25] MEDS: oxyCODONE HCL IR 5 MG TAB (IMMEDIATE RELEASE) PO PRN ×2 (07:45→12:56)
[2022-04-25] MEDS: FOLIC ACID 1 MG TAB PO SCH (08:59)
[2022-04-25] MEDS: PARoxetine HCL 10 MG TAB PO SCH (08:59)
[2022-04-25] MEDS: MULTIVITAMIN TAB PO SCH (08:59)
[2022-04-25] MEDS: THIAMINE HCL 100 MG TAB PO SCH (08:59)
--- NOTE | 2022-04-25 09:53 | Discharge Summary ---
Date of Service April 25, 2022 Admission HPI Per Admitting Provider This is a 9-year-old female presents chronic persistent back and bilateral leg pain. After failing course of nonoperative care is here for surgical invention. Discharge Data Consultations 04/21/22 17:12 Consult Hospitalist Routine Procedures Performed Operation Date: 04/21/22 11:55 Actual Procedures p L3-S1 Decompression and Fusion, Spinal Cord Monitoring(Not Applicable) - Osorio Herman DO [facility] Course (1) Neurogenic claudication due to lumbar spinal stenosis: Patient is a 72-year-old female with history physical examination radiographic images consistent with the above-mentioned diagnosis. For this reason on 04/21/2022 she is brought to the operating and undergone a lumbar decompression and fusion from L3-S1. She left the operating room with the ALAINA drain and Balderas in place and is transferred to PACU in stable condition. She is then transferred to the orthopedic floor. She was seen by physical therapy postop day #1 for ambulation gait training. Throughout her course her abdomen remained soft nontender calves remained supple nontender. On postop day #4 she was deemed safe for home discharge. Discharge instructions were avoid any full bending or lifting. She is to change her dressing once daily till there is no drainage once there is no drainage she may shower. She was to follow-up with our office approximately 2 weeks out from surgery or sooner if she developed any increased drainage increased pain fevers or chills.
[2022-04-25] MEDS ORDERED: GABAPENTIN 600 MG TAB PO SCH (12:00)
--- NOTE | 2022-04-25 12:51 | Hospitalist Progress Note ---
Date of Service April 25, 2022 Assessment & Plan (1) Neurogenic claudication due to lumbar spinal stenosis: Plan: POD#3 L3-S1 decompression and fusion by Dr. Herman Activity and wound care orders as per ortho Pain control with bowel regimen PT/OT Preop Hgb 14.5 --> 11.3 > 9.5. Hemoglobin downtrending to 9.5. No sign of active bleeding Needs to follow-up with primary care doctor to obtain CBC. Elevated Creatinine. BMP today shows improvement in the creatinine. Continue on Irbesartan at home. (2) Alcohol abuse: Plan: Patient reports drinking up to 6 beers/night No sign and symptoms of withdrawal. (3) Hypertension: Plan: Continue home meds (4) Anxiety with depression: Plan: Continue paroxetine and trazodone (5) DVT prophylaxis: Plan: TEDs/SCDs as per spine Ortho Admission and Anticipated Discharge Date Admission Date: April 21, 2022 Subjective Patient seen and examined at bedside. She is comfortable; not in any distress. She had 1 bowel movement. Voiding without any difficulty. Afebrile as well. Review of Systems Review of Systems: All systems reviewed & are unremarkable except as noted in Subjective Physical Exam Constitutional: WD/WN, vitals as above no acute distress Eyes: PERRL, conjunctivae normal, anicteric sclerae ENMT: external ear and nose normal, oropharynx normal Respiratory: normal respiratory effort, lungs clear to auscultation Cardiovascular: Rate/Rhythm: regular rate and regular rhythm Vessels: normal peripheral pulses Extremities: no edema Gastrointestinal (Abdomen): normal bowel sounds, soft, nontender, no hepatosplenomegaly Percussion/Palpation: abdomen soft; abdomen nontender Skin: no rashes, warm and dry Neurologic: PERRL, EOMI, accommodation nl, no face palsy, no dysarthria no focal motor deficits Psychiatric: A+Ox3, euthymic affect Results & Data Results & Data ([facility]) Vital Signs (Past 12 Hours) Vital Signs Temp Pulse Resp BP BP Pulse Ox O2 Del Method 04/25/22 12:05 36.7 C 65 16 149/81 H 158/78 H 92 04/25/22 07:36 36.7 C 65 16 149/81 H 92 Room Air Laboratory Results Laboratory Results WBC 13.99 K/ul (4.8-10.8) H 04/23/22 10:12 RBC 2.79 M/uL (3.93-5.22) L 04/23/22 10:12 Hgb 9.5 g/dl (12.0-16.0) L 04/23/22 10:12 Hct 27.6 % (34.1-44.9) L 04/23/22 10:12 MCV 98.9 fL (80.0-100.0) 04/23/22 10:12 MCH 34.1 pg (25.0-34.0) H 04/23/22 10:12 MCHC 34.4 g/dL (32.0-36.0) 04/23/22 10:12 RDW Std Deviation 46.8 fL (36.4-46.3) H 04/23/22 10:12 RDW Coeff of Chris 13.1 % (11.5-14.5) 04/23/22 10:12 Plt Count 190 K/uL (130-400) 04/23/22 10:12 MPV 10.4 fL (9.4-12.3) 04/23/22 10:12 Immature Gran % (Auto) 0.7 % 04/22/22 06:14 Neut % (Auto) 92.0 % 04/22/22 06:14 Lymph % (Auto) 4.9 % 04/22/22 06:14 [place] % (Auto) 2.3 % 04/22/22 06:14 Eos % (Auto) 0.0 % 04/22/22 06:14 Baso % (Auto) 0.1 % 04/22/22 06:14 Neut # (Auto) 12.28 K/uL (1.4-6.5) H 04/22/22 06:14 Lymph # (Auto) 0.66 K/uL (1.2-3.4) L 04/22/22 06:14 [place] # (Auto) 0.31 K/uL (0.24-0.82) 04/22/22 06:14 Eos # (Auto) 0.00 K/uL (0-0.50) 04/22/22 06:14 Baso # (Auto) 0.01 K/uL (0-0.2) 04/22/22 06:14 Immature Gran # (Auto) 0.09 K/uL (0.00-0.02) H 04/22/22 06:14 Polychromasia 1+ 04/22/22 06:14 Sodium 136 mmol/L (136-145) 04/25/22 06:20 Potassium 4.0 mmol/L (3.5-5.1) 04/25/22 06:20 Chloride 101 mmol/L (98-107) 04/25/22 06:20 Carbon Dioxide 31 mmol/L (21-32) 04/25/22 06:20 Anion Gap 4 (3-11) 04/25/22 06:20 BUN 19 mg/dl (6-23) 04/25/22 06:20 Creatinine 0.97 mg/dl (0.6-1.2) D 04/25/22 06:20 Est Cr Clr Drug Dosing 43.8 ml/min 04/25/22 06:20 Est GFR ( Amer) 68.6 ml/min 04/25/22 06:20 Est GFR (Non-Af Amer) 59.2 ml/min 04/25/22 06:20 BUN/Creatinine Ratio 19.6 (10-20) 04/25/22 06:20 Glucose 93 mg/dl (70-99(Fasting)) 04/25/22 06:20 Calcium 8.9 mg/dl (8.5-10.1) 04/25/22 06:20 SARS-CoV-2, RNA, NAAT NEGATIVE (NEGATIVE) 04/21/22 Unknown Blood Type O Negative 04/21/22 10:40 Antibody Screen NEGATIVE 04/21/22 10:40 Crossmatch See Detail 04/21/22 10:40 Impressions Lumbar Spine X-Ray 04/21/22 00:00 FL lumbar spine 2-3V CLINICAL HISTORY: L3-S1 DECOMP/FUSION COMPARISON STUDY: None. FLUOROSCOPY TIME: 33 seconds. FINDINGS: 2 fluoroscopic spot images of the lumbar spine demonstrate posterior decompression and fusion from L3 through S1 with pedicle screws and rods. The hardware appears intact. Slight anterior displacement of the L4-5 disc spacer which slightly overhangs the endplates. The L5-S1 disc spacers in place. IMPRESSION: Fluoroscopic assistance provided for L3-S1 posterior decompression and fusion as above. ACT 112: Negative or not required by law. Electronically signed by: Nitin Cox M.D. 04/21/2022 2:43 PM
== END 2022-04-25 13:33 | disposition home or self-care (01) | DRG 454 ==
LOC: ASU 10:09 → 3E 14:45